=== PATIENT | female | born 1955 | race Caucasian/White ===

== ENCOUNTER 2019-08-28 23:55 | Inpatient (IN) | payer SELFPAY ==
[~2019-08-28] VITALS: Ht 154.9 cm; Wt 87.0 kg
[2019-08-29] VITALS (7 sets, daily range): BP systolic 116–139; BP diastolic 55–78
[2019-08-29] MEDS ORDERED: IV DEXTROSE 5% 250 ML BAG. IV PRN ×2 (01:00→16:30)
[2019-08-29] MEDS ORDERED: DEXTROSE 50% 25 GM / 50ML DISP.SYRIN. IV PRN ×2 (01:00→16:30)
[2019-08-29] MEDS: IV NORMAL SALINE 1000ML BAG 1,000 ML IV SCH ×3 (01:28→21:26)
[2019-08-29] MEDS ORDERED: IBUP-1027 PO (01:38)
[2019-08-29 07:38] LABS: ALBUMIN 1.6 g/dL (3.4-5.0); ALBUMIN/GLOBULIN RATIO 0.3 (1.0-1.7); CALCIUM 9.2 mg/dL (8.5-10.1); GFR 55.8; TOTAL BILIRUBIN 0.5 mg/dL (0.2-1.0); TOTAL PROTEIN 6.6 g/dL (6.4-8.2)
[2019-08-29 07:45] LABS: BASO # 0.1 x10^3/uL (0.0-0.2); BASO % 0 % (0-3); EOS # 0.2 x10^3/uL (0.0-0.7); EOS % 1 % (0-3); HEMATOCRIT 31.1 % (36.0-47.0); HEMOGLOBIN 10.1 g/dL (12.0-15.5); LYMPH # 1.7 x10^3/uL (1.0-4.8); LYMPH % 11 % (24-48); MEAN CORPUSCULAR HEMOGLOBIN 28 pg (25-35); MEAN CORPUSCULAR HGB CONC 33 g/dL (31-37); MEAN CORPUSCULAR VOLUME 85 fL (79-100); MONO # 1.9 x10^3/uL (0.0-1.1); MONO % 12 % (0-9); NEUT # 11.9 x10^3/uL (1.8-7.7); NEUT % 76 % (31-73); PLATELET COUNT 279 x10^3/uL (140-400); RED BLOOD COUNT 3.68 x10^6/uL (3.50-5.40); RED CELL DISTRIBUTION WIDTH 15.5 % (11.5-14.5); WHITE BLOOD COUNT 15.7 x10^3/uL (4.0-11.0)
[2019-08-29] MEDS ORDERED: INSULIN REGULAR VIAL 100 UNIT in IV NORMAL SALINE 100ML 100 ML IV PRN (08:00)
[2019-08-29] MEDS ORDERED: INSULIN LISPRO 300 UNITS/3 ML VIAL. SQ SCH (08:00)
[2019-08-29] MEDS ORDERED: IV NORMAL SALINE 1000ML BAG 1,000 ML IV ONE (08:00)
--- NOTE | 2019-08-29 12:20 | RAD ---
MRI Brain without contrast History: History of confusion, abnormal head CT, weakness Technique: Multiplanar, multisequential noncontrast MR imaging was performed of the brain. Comparison: None Findings: There is fairly significant motion degradation. There is no evidence of recent infarct, midline shift, or extra-axial fluid collection. There is more focal T2 and FLAIR hyperintense signal abnormality anteriorly of the basal ganglia estimated about 1.7 cm AP by 0.8 cm transverse, slightly hypointense on the T1 sequence. There is other very mild T2 and FLAIR hyperintense signal of the periventricular white matter bilaterally. There is small old left thalamic lacunar infarct. There is no convincing hemosiderin deposition of the brain parenchyma. Right vertebral artery flow-void is not well-visualized, likely small in caliber. There is mild bilateral ethmoid air cell mucosal thickening also small mucous retention cyst of the right sphenoethmoidal recess. Mastoid air cells are overall aerated. Cerebellar tonsils are normal in location. There is nonspecific heterogeneity of the marrow of the nonexpanded clivus. Impression: 1. There is no evidence of recent infarct. 2. There is nonspecific T2 and FLAIR hyperintense signal of the left basal ganglia. Findings are nonspecific, could be secondary to sequela of previous ischemia. Post contrast imaging, if patient is able to perform, is recommended. There is small old left thalamic lacunar infarct. Other mild T2 and FLAIR hyperintense signal of the periventricular white matter is nonspecific, may be due to chronic microvascular ischemic disease. Electronically signed by: Enrique Plunkett MD (08/29/2019 12:17 PM) [id number]
[2019-08-29 13:01] LABS: % BANDS 15 % (0-9); % EOS 3 % (0-5); % LYMPHS 12 % (24-48); % MONOS 8 % (0-10); % SEGS 62 % (35-66); PLT ESTIMATE ADEQUATE (ADEQUATE)
[2019-08-29 13:02] LABS: ANISOCYTOSIS PRESENT
--- NOTE | 2019-08-29 13:09 | HP ---
ADMIT DATE: 08/29/2019 HISTORY OF PRESENT ILLNESS: The patient is a 64-year-old female patient who presented to the Emergency Room of [facility] with a complaint of some dizziness and possible confusion and weakness throughout the day. According to the ER physician, the patient states that she has not been feeling well for approximately 1 week. Reportedly, her said that he brought her a burger and she kept dropping it multiple times. She asked for Coke and she also again dropped it. She has difficulty gripping with her right hand and may be some regular difficulty walking. 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 There, she was in fact found to have markedly elevated white cell count of 17,000. She has also severe hyperglycemia with actually metabolic acidosis. Her urinalysis was cloudy with positive for leukocyte esterase and too numerous to count wbc's and many bacteria and the patient was transferred with new onset type 2 diabetes with diabetic ketoacidosis, urinary tract infection. Apparently, her CT scan also showed that she has focal white matter changes in the anterior limb of the internal capsule on the left side and therefore, she was transferred to [facility] to consult the neurologist and to do an MRI. PAST MEDICAL HISTORY: Unremarkable. She does not go to the doctor. Has never been diagnosed with diabetes, hypertension or hyperlipidemia. Has never known before the diagnosis with TIA or cerebrovascular accident. PAST SURGICAL HISTORY: Significant for , appendectomy and total abdominal hysterectomy. ALLERGIES: She has no known drug allergies. MEDICATIONS: She is currently on no medication. FAMILY HISTORY: She has 3 full sisters, 2 older and 1 younger. She is not aware of any medical problem. Her father is , but does not know the age or the cause of his . Her mother at age of 79, but does not know the cause of her . SOCIAL HISTORY: She is for the second time. She has no children from her current . She has a daughter and a son from her previous marriage. She quit smoking about 5 years ago. She used to smoke up to a pack a day. She does not drink alcohol or use any recreational drugs. She worked for [employer] for 8 years and also [employer] for 5 years. PHYSICAL EXAMINATION: GENERAL: On arrival to the Emergency Room, she looked well and was clearly in no apparent respiratory distress, pale, but no jaundice or cyanosis. No lymphadenopathy, no thyromegaly. No jugular venous distention. No lower limb edema. VITAL SIGNS: Her heart rate was 124, blood pressure 148/84, temperature was 98.5, respiratory rate 20 and oxygen saturation was 97%. HEAD, EYES, EARS, NOSE AND THROAT: Showed normocephalic, atraumatic. NECK: Supple. HEART: Showed normal first and second heart sounds. No gallop, rub or murmur. CHEST: Clear to auscultation. No crepitation or rhonchi. ABDOMEN: Slightly distended, soft, nontender. NEUROLOGIC: She was alert, oriented to time, place and person. Apparently, when she presented there, her neurological examination was unremarkable. LABORATORY DATA: While at the Emergency Room of [facility], she has an EKG, which showed that she was in sinus tachycardia with a ventricular rate of 122 beats per minute with no ST segment elevation. Her chest x-ray showed possible mild atelectasis, infiltrate in the lung base on the lateral view. No other acute chest disease. CT scan of the head showed that she has focal white matter changes in the anterior limb of the internal capsule on the left side. Her lab work showed a white cell count 17,200; hemoglobin 11; hematocrit 35; MCV 87 and platelet count of 334,000. Her prothrombin time was 11.3, INR 1.1, aPTT was 28. Her serum sodium was 135, potassium 4.4, chloride 97, bicarbonate 16, anion gap of 22, BUN 23, creatinine 1.3, estimated GFR was 41 mL per minute. Her glucose was 497, calcium was 10.7. Lactic acid was 1.3. Her urinalysis showed the urine was yellow, cloudy with a pH of 5, specific gravity of 1.015. There was large amount of protein, large amount of glucose, large amount of ketones, small amount of blood, negative for nitrite, trace amount of leukocyte esterase, 1-2 rbc's, too numerous to count wbc's and few bacteria. 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 She was started on IV fluid and initially on insulin sliding scale. However, given that she has high anion gap metabolic acidosis and marked hyperglycemia, we will start her on insulin drip as well as IV fluid. We did consult the urologist and continued her on IV antibiotic in the form of ceftriaxone. We will follow her labs closely and she probably needs obviously lipid profile and carotid Dopplers and will also recommend physical and occupational therapy. JOSHUA BRINK MD DR: ZENON/jayme JOB#: [id number] / [id number]
--- NOTE | 2019-08-29 13:17 | PDOC2 ---
NEUROLOGY CONSULT Date of Admission Date of Admission DATE: 08/29/19 TIME: 13:08 Reason for Consult Reason for Consult: Abnormal head CT Referring Physician Referring Physician: Dr. Womack Source Source: Chart review, Patient History of Present Illness History of Present Illness The patient is a 64-year-old right-handed female who presented to the [facility] emergency department with several days of dizziness, confusion, weakness, perhaps worse on the right side. She was found to have a urinary tract infection. She had an abnormal head CT as reviewed below. She is feeling better today. There is no history of stroke, seizure, or head injury. Here in the hospital she has been found to be hyperglycemic and is on an insulin drip. Past Medical History Cardiovascular: No pertinent hx Musculoskeletal: Other (Left knee injury) Past Surgical History Past Surgical History: Other Family History Family History: CAD Social History Social History , retired, ex smoker, rare alcohol Current Medications Current Medications Current Medications Sodium Chloride 1,000 ml @ 100 mls/hr Q10H IV Last administered on 08/29/19at 11:00; Start 08/29/19 at 01:00 Ceftriaxone Sodium (Rocephin) 1 gm Q24H IVP ; Start 08/29/19 at 21:00 Acetaminophen (Tylenol) 650 mg PRN Q4HRS PRN PO MILD PAIN / TEMP; Start 08/29/19 at 01:00 Insulin Human Lispro (HumaLOG) 0-7 UNITS TIDWMEALS SQ ; Start 08/29/19 at 08:00; Stop 08/29/19 at 07:53; Status DC Dextrose (Dextrose 50%-Water Syringe) 12.5 gm PRN Q15MIN PRN IV SEE COMMENTS; Start 08/29/19 at 01:00 Dextrose (Iv Dextrose 5%) 250 ml PRN Q15MIN PRN IV SEE COMMENTS; Start 08/29/19 at 01:00 Insulin Human Regular 100 unit/ Sodium Chloride 101 ml @ 5.8 mls/hr CONT PRN IV per protocol; Start 08/29/19 at 08:00 Sodium Chloride 1,000 ml @ 1,000 mls/hr 1X ONCE IV Last administered on 08/29/19at 08:00; Start 08/29/19 at 08:00; Stop 08/29/19 at 08:59; Status DC Active Scripts Active Reported Ibuprofen 400 Mg Tablet 400 Mg PO PRN Q6HRS PRN Allergies Allergies: Coded Allergies: No Known Drug Allergies (Unverified , 08/29/19) verified with pt, NKDA ROS Review of System Negative for fever, chills, weight loss, shortness of breath, chest pain, in digestion, hematochezia, melena, and dysuria. Full 14-point review of systems is negative. Physical Exam Physical Examination General: Well-developed, well-nourished black female in no acute distress HEENT: Normocephalic andatraumatic. Temporal arteriespulsatile and nontender. Neck: Supple without bruit, no meningismus Musculoskeletal: Stability:see neurologic. Gait exam:see neurologic. Tone:see neurologic.Strength:see neurologic. Neurological: Mental Status:intact, orientation, memory, attention span/concentration, language, fund of knowledge normal. Cranial Nerves:Pupils equal and reactive to light, extraocular movements areintact, visual amador are full to confrontation. Facial sensation is normal. There is no facial asymmetry. Vestibulo-ocular reflex is intact. Palate elevates and tongue protrudes in midline. All other cranial related problems are negative except as mentioned before.Reflexes:1+ and symmetric with flexor plantar responses. Motor:5/5 strength with normal tone and bulk. Coordination:Finger-nose finger and brcv-gt-srny testing are normal. Rapid alternating movements and fine finger movements are intact. Gait: not tested. Sensory:Normal pinprick, vibration, light touch, proprioception. Vitals VITALS Vital Signs Date Time Temp Pulse Resp B/P (MAP) Pulse Ox O2 Delivery O2 Flow Rate FiO2 08/29/19 11:00 98.0 95 16 137/70 (92) 95 Room Air 98.0 Labs Labs [facility] Laboratory Tests Test 08/28/19 20:08 08/28/19 20:26 Urine Collection Type Unknown Urine Color Yellow Urine Clarity Cloudy Urine pH 5.0 Urine Specific Hilbert 1.015 Urine Protein 100 mg/dl Urine Glucose (UA) 500 mg/dL Urine Ketones (Stick) >=160 mg/dL Urine Blood Small Urine Nitrite Neg Urine Bilirubin Neg Urine Urobilinogen Dipstick 0.2 mg/dL Urine Leukocyte Esterase Trace Urine RBC 1-2 /HPF Urine WBC Tntc /HPF Urine Squamous Epithelial Cells Occ /LPF Urine Bacteria Few /HPF Urine Hyaline Casts Occ /HPF Urine Mucus Slight /LPF White Blood Count 17.2 x10^3/uL Red Blood Count 4.12 x10^6/uL Hemoglobin 11.4 g/dL Hematocrit 35.9 % Mean Corpuscular Volume 87 fL Mean Corpuscular Hemoglobin 28 pg Mean Corpuscular Hemoglobin Concent 32 g/dL Red Cell Distribution Width 15.8 % Platelet Count 334 x10^3/uL Neutrophils (%) (Auto) 77 % Lymphocytes (%) (Auto) 10 % Monocytes (%) (Auto) 11 % Eosinophils (%) (Auto) 1 % Basophils (%) (Auto) 0 % Neutrophils # (Auto) 13.3 x10^3uL Lymphocytes # (Auto) 1.8 x10^3/uL Monocytes # (Auto) 1.9 x10^3/uL Eosinophils # (Auto) 0.2 x10^3/uL Basophils # (Auto) 0.0 x10^3/uL Platelet Estimate Pending Prothrombin Time 11.3 SEC Prothromb Time International Ratio 1.1 Activated Partial Thromboplast Time 28 SEC Sodium Level 135 mmol/L Potassium Level 4.4 mmol/L Chloride Level 97 mmol/L Carbon Dioxide Level 16 mmol/L Anion Gap 22 Blood Urea Nitrogen 23 mg/dL Creatinine 1.3 mg/dL Estimated GFR (Cockcroft-Gault) 41.2 Glucose Level 497 mg/dL Calcium Level 10.7 mg/dL Troponin I Quantitative < 0.017 ng/mL Laboratory Tests Test 08/28/19 23:59 08/29/19 07:02 08/29/19 07:50 08/29/19 09:27 Glucose (Fingerstick) 387 mg/dL (70-99) 351 mg/dL (70-99) 349 mg/dL (70-99) White Blood Count 15.7 x10^3/uL (4.0-11.0) Red Blood Count 3.68 x10^6/uL (3.50-5.40) Hemoglobin 10.1 g/dL (12.0-15.5) Hematocrit 31.1 % (36.0-47.0) Mean Corpuscular Volume 85 fL (79-100) Mean Corpuscular Hemoglobin 28 pg (25-35) Mean Corpuscular Hemoglobin Concent 33 g/dL (31-37) Red Cell Distribution Width 15.5 % (11.5-14.5) Platelet Count 279 x10^3/uL (140-400) Neutrophils (%) (Auto) 76 % (31-73) Lymphocytes (%) (Auto) 11 % (24-48) Monocytes (%) (Auto) 12 % (0-9) Eosinophils (%) (Auto) 1 % (0-3) Basophils (%) (Auto) 0 % (0-3) Neutrophils # (Auto) 11.9 x10^3/uL (1.8-7.7) Lymphocytes # (Auto) 1.7 x10^3/uL (1.0-4.8) Monocytes # (Auto) 1.9 x10^3/uL (0.0-1.1) Eosinophils # (Auto) 0.2 x10^3/uL (0.0-0.7) Basophils # (Auto) 0.1 x10^3/uL (0.0-0.2) Segmented Neutrophils % 62 % (35-66) Band Neutrophils % 15 % (0-9) Lymphocytes % 12 % (24-48) Monocytes % 8 % (0-10) Eosinophils % 3 % (0-5) Platelet Estimate Adequate (ADEQUATE) Large Platelets Present Anisocytosis Present Sodium Level 135 mmol/L (136-145) Potassium Level 4.0 mmol/L (3.5-5.1) Chloride Level 103 mmol/L (98-107) Carbon Dioxide Level 12 mmol/L (21-32) Anion Gap 20 (6-14) Blood Urea Nitrogen 19 mg/dL (7-20) Creatinine 1.0 mg/dL (0.6-1.0) Estimated GFR (Cockcroft-Gault) 55.8 BUN/Creatinine Ratio 19 (6-20) Glucose Level 371 mg/dL (70-99) Calcium Level 9.2 mg/dL (8.5-10.1) Total Bilirubin 0.5 mg/dL (0.2-1.0) Aspartate Amino Transf (AST/SGOT) 12 U/L (15-37) Alanine Aminotransferase (ALT/SGPT) 12 U/L (14-59) Alkaline Phosphatase 101 U/L (46-116) Total Protein 6.6 g/dL (6.4-8.2) Albumin 1.6 g/dL (3.4-5.0) Albumin/Globulin Ratio 0.3 (1.0-1.7) Test 08/29/19 10:28 08/29/19 12:03 Glucose (Fingerstick) 359 mg/dL (70-99) 358 mg/dL (70-99) Laboratory Tests Test 08/28/19 23:59 08/29/19 07:02 08/29/19 07:50 08/29/19 09:27 Glucose (Fingerstick) 387 mg/dL (70-99) 351 mg/dL (70-99) 349 mg/dL (70-99) White Blood Count 15.7 x10^3/uL (4.0-11.0) Red Blood Count 3.68 x10^6/uL (3.50-5.40) Hemoglobin 10.1 g/dL (12.0-15.5) Hematocrit 31.1 % (36.0-47.0) Mean Corpuscular Volume 85 fL (79-100) Mean Corpuscular Hemoglobin 28 pg (25-35) Mean Corpuscular Hemoglobin Concent 33 g/dL (31-37) Red Cell Distribution Width 15.5 % (11.5-14.5) Platelet Count 279 x10^3/uL (140-400) Neutrophils (%) (Auto) 76 % (31-73) Lymphocytes (%) (Auto) 11 % (24-48) Monocytes (%) (Auto) 12 % (0-9) Eosinophils (%) (Auto) 1 % (0-3) Basophils (%) (Auto) 0 % (0-3) Neutrophils # (Auto) 11.9 x10^3/uL (1.8-7.7) Lymphocytes # (Auto) 1.7 x10^3/uL (1.0-4.8) Monocytes # (Auto) 1.9 x10^3/uL (0.0-1.1) Eosinophils # (Auto) 0.2 x10^3/uL (0.0-0.7) Basophils # (Auto) 0.1 x10^3/uL (0.0-0.2) Segmented Neutrophils % 62 % (35-66) Band Neutrophils % 15 % (0-9) Lymphocytes % 12 % (24-48) Monocytes % 8 % (0-10) Eosinophils % 3 % (0-5) Platelet Estimate Adequate (ADEQUATE) Large Platelets Present Anisocytosis Present Sodium Level 135 mmol/L (136-145) Potassium Level 4.0 mmol/L (3.5-5.1) Chloride Level 103 mmol/L (98-107) Carbon Dioxide Level 12 mmol/L (21-32) Anion Gap 20 (6-14) Blood Urea Nitrogen 19 mg/dL (7-20) Creatinine 1.0 mg/dL (0.6-1.0) Estimated GFR (Cockcroft-Gault) 55.8 BUN/Creatinine Ratio 19 (6-20) Glucose Level 371 mg/dL (70-99) Calcium Level 9.2 mg/dL (8.5-10.1) Total Bilirubin 0.5 mg/dL (0.2-1.0) Aspartate Amino Transf (AST/SGOT) 12 U/L (15-37) Alanine Aminotransferase (ALT/SGPT) 12 U/L (14-59) Alkaline Phosphatase 101 U/L (46-116) Total Protein 6.6 g/dL (6.4-8.2) Albumin 1.6 g/dL (3.4-5.0) Albumin/Globulin Ratio 0.3 (1.0-1.7) Test 08/29/19 10:28 08/29/19 12:03 Glucose (Fingerstick) 359 mg/dL (70-99) 358 mg/dL (70-99) Images Images CT brain without contrast, [facility], 08/28/19. CT scan of brain was done without contrast. Sinuses are clear. There is no skull fracture. There is no mass or shift of the midline. There is no intracranial hemorrhage or subdural hematoma. Ventricles are normal in size. There is decreased at attenuation in the anterior limb of the internal capsule on the left which could be microvascular changes or lacunar infarct or other etiologies for white matter changes such as MS. MRI could be of benefit. IMPRESSION: 1. No intracranial hemorrhage. 2. Focal white matter changes in the anterior limb of the internal capsule on the left. MRI Brain without contrast History: History of confusion, abnormal head CT, weakness Technique: Multiplanar, multisequential noncontrast MR imaging was performed of the brain. Comparison: None Findings: There is fairly significant motion degradation. There is no evidence of recent infarct, midline shift, or extra-axial fluid collection. There is more focal T2 and FLAIR hyperintense signal abnormality anteriorly of the basal ganglia estimated about 1.7 cm AP by 0.8 cm transverse, slightly hypointense on the T1 sequence. There is other very mild T2 and FLAIR hyperintense signal of the periventricular white matter bilaterally. There is small old left thalamic lacunar infarct. There is no convincing hemosiderin deposition of the brain parenchyma. Right vertebral artery flow-void is not well-visualized, likely small in caliber. There is mild bilateral ethmoid air cell mucosal thickening also small mucous retention cyst of the right sphenoethmoidal recess. Mastoid air cells are overall aerated. Cerebellar tonsils are normal in location. There is nonspecific heterogeneity of the marrow of the nonexpanded clivus. Impression: 1. There is no evidence of recent infarct. 2. There is nonspecific T2 and FLAIR hyperintense signal of the left basal ganglia. Findings are nonspecific, could be secondary to sequela of previous ischemia. Post contrast imaging, if patient is able to perform, is recommended. There is small old left thalamic lacunar infarct. Other mild T2 and FLAIR hyperintense signal of the periventricular white matter is nonspecific, may be due to chronic microvascular ischemic disease. Assessment/Plan Assessment/Plan Impression: Old silent left basal ganglia infarct, no new stroke Metabolic encephalopathy due to multiple medical issues including urinary tract infection, leucocytosis, hyperglycemia. Exam is intact now. Recommendations: No need for additional stroke workup, although I see that Dr. Womack has ordered carotid Doppler studies. Aspirin Check lipids Treatment of urinary tract infection and hyperglycemia. Thank you for letting me help with patient care. RAYMOND PEARSON MD Aug 29, 2019 13:17
--- NOTE | 2019-08-29 14:11 | RAD ---
Carotid doppler ultrasound History: Right-sided weakness Multiple grayscale, color, and duplex spectral analysis waveform sonographic images were acquired of the carotid, subclavian, and vertebral arteries. Comparison: None Findings: RIGHT: PSV cm/sec EDV cm/sec Common carotid artery 119 16 Maximal internal carotid artery 57 10 External carotid artery 126 Vertebral artery 58 ICA/CCA ratio 0.47 LEFT: PSV cm/sec EDV cm/sec Common carotid artery 81 16 Maximum internal carotid artery 104 26 External carotid artery 95 Vertebral artery 58 ICA/CCA ratio 1.28 Velocities used to determine stenosis are known to correlate with NASCET angiographic criteria. There is antegrade flow in the bilateral vertebral arteries. There is scattered plaque of the bilateral common carotid arteries as well as the internal and external carotid arteries bilaterally. Impression: 1. There is no evidence of a hemodynamically significant stenosis. There is scattered diffuse plaque bilaterally. 2. There is likely stenosis of the right external carotid artery proximally. Electronically signed by: Enrique Plunkett MD (08/29/2019 2:08 PM) [id number]
[2019-08-29] MEDS: INSULIN LISPRO 300 UNITS/3 ML VIAL. SQ SCH (16:56)
--- NOTE | 2019-08-29 19:31 | NUR ---
Pt fall this shift. Staff reported they heard yelling and cursing coming from the room. Pt was on the floor on arrival. IV was dislodged, active bleeding. Bleeding controlled immediately. Assessment, no injuries noted. Pt was confused at the time, slurring words, unable to recall what happened prior to fall. BS was 230s, lowest its been this visit. All other VS within normal range. Nursing super, Dr. Womack, family notified. Orders received to dc insulin drip start low SS. Pt BS rechecked after dinner, 278. States she feels better when her BS is high. Pt education provided, reinforcement required. Fall precautions continue to be in place. Cont. to monitor.
[2019-08-29] MEDS ORDERED: INSULIN GLARGINE SYRINGE. SQ SCH (21:00)
[2019-08-29] MEDS: cefTRIAXone IV Push 1 GM VIAL. IVP SCH (21:19)
[2019-08-29] MEDS: LACTOBACILLUS RHAMNOSUS GG 1 CAPSULE. PO SCH (21:19)
--- NOTE | 2019-08-29 22:05 | PN ---
DATE: 08/29/2019 SUBJECTIVE: The patient was transferred yesterday from [facility] Emergency Room with urinary tract infection and marked leukocytosis. She was also found to have a new-onset type 2 diabetes with diabetic ketoacidosis and high anion metabolic acidosis, acute kidney injury and also right-sided weakness. CT scan showed that she has focal white matter change in the anterior limb of the internal capsule on the left side, which is in keeping with the finding of her neurological deficits on the right side and therefore, she was transferred to [facility]. We continued her on IV fluid, continued IV antibiotic in the form of ceftriaxone, started her on insulin drip and IV fluid, and consulted the neurologist. She apparently has had an MRI done, the results of which are still pending. PHYSICAL EXAMINATION: GENERAL: When I saw her this afternoon, she was resting slightly propped up in bed, in no apparent respiratory distress. No pallor, jaundice, cyanosis, or thyromegaly. No jugular venous distention or limb edema. VITAL SIGNS: Her heart rate was 95, blood pressure 137/70, temperature was 98, respiratory rate was 16, and oxygen saturation was 95% on room air. HEAD, EYES, EARS, NOSE, AND THROAT: Normocephalic, atraumatic. NECK: Supple. HEART: Showed normal first and second heart sounds. No gallop or murmur. CHEST: Clear to auscultation. No crepitation or rhonchi. ABDOMEN: Distended, soft, nontender. NEUROLOGIC: She is awake, alert, responding appropriately. All cranial nerves intact. She moves extremities without difficulty. I have not seen her walking. Her intake and output are incompletely recorded. LABORATORY DATA: Her lab work this morning showed a serum sodium 135, potassium 4, chloride 103, bicarbonate 12, anion gap of 20, BUN 19, creatinine 1, estimated GFR was 55 mL per minute. Her glucose was 371, calcium was 9.2. Total bilirubin, AST, ALT, alkaline phosphatase were normal. Total protein was 6.6, albumin was 1.6. Her white cell count slightly down at 15,700, hemoglobin 10, hematocrit 31, MCV 85, and platelet count 276,000. ASSESSMENT AND PLAN: In summary, this is a 64-year-old female patient who was admitted with right-sided weakness with finding of nonspecific T2 on FLAIR, hyperintense signal in the left basal ganglia. Findings are nonspecific and could be secondary to sequelae of previous ischemia. She has urinary tract infection, for which she continued to be on IV ceftriaxone. She has new-onset type 2 diabetes with diabetic ketoacidosis, for which she was started on IV fluid and insulin drip. We will obviously check her fasting lipid profile and bilateral carotid Doppler ultrasound and await the evaluation by the neurologist. JOSHUA BRINK MD DR: ZENON/jayme JOB#: [id number] / [id number]
[2019-08-30 03:00] VITALS: BP 143/76
[2019-08-30 05:38] LABS: HEMATOCRIT 30.1 % (36.0-47.0); HEMOGLOBIN 9.8 g/dL (12.0-15.5); RED BLOOD COUNT 3.55 x10^6/uL (3.50-5.40); RED CELL DISTRIBUTION WIDTH 16.2 % (11.5-14.5); WHITE BLOOD COUNT 12.6 x10^3/uL (4.0-11.0)
[2019-08-30 06:08] LABS: ALBUMIN 1.4 g/dL (3.4-5.0); ALBUMIN/GLOBULIN RATIO 0.3 (1.0-1.7); GFR 55.8; POTASSIUM 3.6 mmol/L (3.5-5.1); TOTAL BILIRUBIN 0.4 mg/dL (0.2-1.0)
[2019-08-30 06:10] LABS: CHOLESTEROL/HDL RATIO 11.9
[2019-08-30 07:00] VITALS: BP 134/69
[2019-08-30] MEDS: IV NORMAL SALINE 1000ML BAG 1,000 ML IV SCH ×2 (07:56→18:23)
[2019-08-30] MEDS: INSULIN LISPRO 300 UNITS/3 ML VIAL. SQ SCH ×2 (08:00→18:22)
[2019-08-30] MEDS: LACTOBACILLUS RHAMNOSUS GG 1 CAPSULE. PO SCH ×2 (09:05→22:14)
--- NOTE | 2019-08-30 09:20 | NUR ---
SW following. Discussed with RN, pt is from home with . Per RN, Dr. Rey states there is nothing new showing in the exam/ test/ scans. RN stated positive blood cultures. Pt is self pay, plan will be to discharge home with self care and when ready. SW will continue to follow.
[2019-08-30 11:00] VITALS: BP 132/78
[2019-08-30] MEDS ORDERED: DEXTROSE 50% 25 GM / 50ML DISP.SYRIN. IV PRN (11:00)
[2019-08-30] MEDS ORDERED: IV DEXTROSE 5% 250 ML BAG. IV PRN (11:00)
--- NOTE | 2019-08-30 11:06 | PDOC ---
PROGRESS NOTES Assessment Old silent left basal ganglia infarct, no new stroke Metabolic encephalopathy due to multiple medical issues including urinary tract infection, leucocytosis, hyperglycemia. Exam is intact now. Lipids, normal cholesterol, elevated triglycerides Plan No need for additional stroke workup. Aspirin Lipid treatment per PCP, internal medicine Regulate diabetes Treatment of urinary tract infection and hyperglycemia. Subjective no complaints, still feels a little weak Objective Vital Signs Date Time Temp Pulse Resp B/P (MAP) Pulse Ox O2 Delivery O2 Flow Rate FiO2 08/30/19 07:00 98.4 92 16 134/69 (90) 95 Room Air 98.4 Intake and Output 08/30/19 07:00 Intake Total 120 ml Balance 120 ml Intake Oral 120 ml # Voids 3 PHYSICAL EXAM Alert. Oriented to time, place and person. PERRL. EOMI. CN: no focal findings. Muscle tone: normal. Muscle strength: 5/5 DTR: 1+ Plantar reflex: flexor Gait: not examined in bed. Sensory exam: no abnormal findings. No cerebellar signs elicited. Review of Relevant I have reviewed the following items damaso (where applicable) has been applied. Labs Laboratory Tests Test 08/28/19 23:59 08/29/19 07:02 08/29/19 07:50 08/29/19 09:27 Glucose (Fingerstick) 387 mg/dL (70-99) 351 mg/dL (70-99) 349 mg/dL (70-99) White Blood Count 15.7 x10^3/uL (4.0-11.0) Red Blood Count 3.68 x10^6/uL (3.50-5.40) Hemoglobin 10.1 g/dL (12.0-15.5) Hematocrit 31.1 % (36.0-47.0) Mean Corpuscular Volume 85 fL (79-100) Mean Corpuscular Hemoglobin 28 pg (25-35) Mean Corpuscular Hemoglobin Concent 33 g/dL (31-37) Red Cell Distribution Width 15.5 % (11.5-14.5) Platelet Count 279 x10^3/uL (140-400) Neutrophils (%) (Auto) 76 % (31-73) Lymphocytes (%) (Auto) 11 % (24-48) Monocytes (%) (Auto) 12 % (0-9) Eosinophils (%) (Auto) 1 % (0-3) Basophils (%) (Auto) 0 % (0-3) Neutrophils # (Auto) 11.9 x10^3/uL (1.8-7.7) Lymphocytes # (Auto) 1.7 x10^3/uL (1.0-4.8) Monocytes # (Auto) 1.9 x10^3/uL (0.0-1.1) Eosinophils # (Auto) 0.2 x10^3/uL (0.0-0.7) Basophils # (Auto) 0.1 x10^3/uL (0.0-0.2) Segmented Neutrophils % 62 % (35-66) Band Neutrophils % 15 % (0-9) Lymphocytes % 12 % (24-48) Monocytes % 8 % (0-10) Eosinophils % 3 % (0-5) Platelet Estimate Adequate (ADEQUATE) Large Platelets Present Anisocytosis Present Sodium Level 135 mmol/L (136-145) Potassium Level 4.0 mmol/L (3.5-5.1) Chloride Level 103 mmol/L (98-107) Carbon Dioxide Level 12 mmol/L (21-32) Anion Gap 20 (6-14) Blood Urea Nitrogen 19 mg/dL (7-20) Creatinine 1.0 mg/dL (0.6-1.0) Estimated GFR (Cockcroft-Gault) 55.8 BUN/Creatinine Ratio 19 (6-20) Glucose Level 371 mg/dL (70-99) Calcium Level 9.2 mg/dL (8.5-10.1) Total Bilirubin 0.5 mg/dL (0.2-1.0) Aspartate Amino Transf (AST/SGOT) 12 U/L (15-37) Alanine Aminotransferase (ALT/SGPT) 12 U/L (14-59) Alkaline Phosphatase 101 U/L (46-116) Total Protein 6.6 g/dL (6.4-8.2) Albumin 1.6 g/dL (3.4-5.0) Albumin/Globulin Ratio 0.3 (1.0-1.7) Test 08/29/19 10:28 08/29/19 12:03 08/29/19 13:18 08/29/19 14:21 Glucose (Fingerstick) 359 mg/dL (70-99) 358 mg/dL (70-99) 342 mg/dL (70-99) 312 mg/dL (70-99) Test 08/29/19 15:26 08/29/19 16:07 08/29/19 16:52 08/29/19 18:03 Glucose (Fingerstick) 273 mg/dL (70-99) 223 mg/dL (70-99) 248 mg/dL (70-99) 277 mg/dL (70-99) Test 08/29/19 20:25 08/30/19 04:00 08/30/19 07:55 Glucose (Fingerstick) 293 mg/dL (70-99) 315 mg/dL (70-99) White Blood Count 12.6 x10^3/uL (4.0-11.0) Red Blood Count 3.55 x10^6/uL (3.50-5.40) Hemoglobin 9.8 g/dL (12.0-15.5) Hematocrit 30.1 % (36.0-47.0) Mean Corpuscular Volume 85 fL (79-100) Mean Corpuscular Hemoglobin 28 pg (25-35) Mean Corpuscular Hemoglobin Concent 33 g/dL (31-37) Red Cell Distribution Width 16.2 % (11.5-14.5) Platelet Count 281 x10^3/uL (140-400) Sodium Level 138 mmol/L (136-145) Potassium Level 3.6 mmol/L (3.5-5.1) Chloride Level 105 mmol/L (98-107) Carbon Dioxide Level 15 mmol/L (21-32) Anion Gap 18 (6-14) Blood Urea Nitrogen 17 mg/dL (7-20) Creatinine 1.0 mg/dL (0.6-1.0) Estimated GFR (Cockcroft-Gault) 55.8 BUN/Creatinine Ratio 17 (6-20) Glucose Level 321 mg/dL (70-99) Calcium Level 9.0 mg/dL (8.5-10.1) Total Bilirubin 0.4 mg/dL (0.2-1.0) Aspartate Amino Transf (AST/SGOT) 14 U/L (15-37) Alanine Aminotransferase (ALT/SGPT) 9 U/L (14-59) Alkaline Phosphatase 108 U/L (46-116) Total Protein 7.0 g/dL (6.4-8.2) Albumin 1.4 g/dL (3.4-5.0) Albumin/Globulin Ratio 0.3 (1.0-1.7) Triglycerides Level 151 mg/dL (0-150) Cholesterol Level 107 mg/dL (0-200) LDL Cholesterol, Calculated 68 mg/dL (0-100) VLDL Cholesterol, Calculated 30 mg/dL (0-40) Non-HDL Cholesterol Calculated 98 mg/dL (0-129) HDL Cholesterol 9 mg/dL (40-60) Cholesterol/HDL Ratio 11.9 Laboratory Tests Test 08/29/19 12:03 08/29/19 13:18 08/29/19 14:21 08/29/19 15:26 Glucose (Fingerstick) 358 mg/dL (70-99) 342 mg/dL (70-99) 312 mg/dL (70-99) 273 mg/dL (70-99) Test 08/29/19 16:07 08/29/19 16:52 08/29/19 18:03 08/29/19 20:25 Glucose (Fingerstick) 223 mg/dL (70-99) 248 mg/dL (70-99) 277 mg/dL (70-99) 293 mg/dL (70-99) Test 08/30/19 04:00 08/30/19 07:55 White Blood Count 12.6 x10^3/uL (4.0-11.0) Red Blood Count 3.55 x10^6/uL (3.50-5.40) Hemoglobin 9.8 g/dL (12.0-15.5) Hematocrit 30.1 % (36.0-47.0) Mean Corpuscular Volume 85 fL (79-100) Mean Corpuscular Hemoglobin 28 pg (25-35) Mean Corpuscular Hemoglobin Concent 33 g/dL (31-37) Red Cell Distribution Width 16.2 % (11.5-14.5) Platelet Count 281 x10^3/uL (140-400) Sodium Level 138 mmol/L (136-145) Potassium Level 3.6 mmol/L (3.5-5.1) Chloride Level 105 mmol/L (98-107) Carbon Dioxide Level 15 mmol/L (21-32) Anion Gap 18 (6-14) Blood Urea Nitrogen 17 mg/dL (7-20) Creatinine 1.0 mg/dL (0.6-1.0) Estimated GFR (Cockcroft-Gault) 55.8 BUN/Creatinine Ratio 17 (6-20) Glucose Level 321 mg/dL (70-99) Calcium Level 9.0 mg/dL (8.5-10.1) Total Bilirubin 0.4 mg/dL (0.2-1.0) Aspartate Amino Transf (AST/SGOT) 14 U/L (15-37) Alanine Aminotransferase (ALT/SGPT) 9 U/L (14-59) Alkaline Phosphatase 108 U/L (46-116) Total Protein 7.0 g/dL (6.4-8.2) Albumin 1.4 g/dL (3.4-5.0) Albumin/Globulin Ratio 0.3 (1.0-1.7) Triglycerides Level 151 mg/dL (0-150) Cholesterol Level 107 mg/dL (0-200) LDL Cholesterol, Calculated 68 mg/dL (0-100) VLDL Cholesterol, Calculated 30 mg/dL (0-40) Non-HDL Cholesterol Calculated 98 mg/dL (0-129) HDL Cholesterol 9 mg/dL (40-60) Cholesterol/HDL Ratio 11.9 Glucose (Fingerstick) 315 mg/dL (70-99) Medications Current Medications Sodium Chloride 1,000 ml @ 100 mls/hr Q10H IV Last administered on 08/30/19at 07:56; Start 08/29/19 at 01:00 Ceftriaxone Sodium (Rocephin) 1 gm Q24H IVP Last administered on 08/29/19at 21:19; Start 08/29/19 at 21:00 Acetaminophen (Tylenol) 650 mg PRN Q4HRS PRN PO MILD PAIN / TEMP; Start 08/29/19 at 01:00 Insulin Human Lispro (HumaLOG) 0-7 UNITS TIDWMEALS SQ ; Start 08/29/19 at 08:00; Stop 08/29/19 at 07:53; Status DC Dextrose (Dextrose 50%-Water Syringe) 12.5 gm PRN Q15MIN PRN IV SEE COMMENTS; Start 08/29/19 at 01:00; Stop 08/29/19 at 18:41; Status DC Dextrose (Iv Dextrose 5%) 250 ml PRN Q15MIN PRN IV SEE COMMENTS; Start 08/29/19 at 01:00; Stop 08/29/19 at 18:41; Status DC Insulin Human Regular 100 unit/ Sodium Chloride 101 ml @ 5.8 mls/hr CONT PRN I V per protocol; Start 08/29/19 at 08:00; Stop 08/29/19 at 16:34; Status DC Sodium Chloride 1,000 ml @ 1,000 mls/hr 1X ONCE IV Last administered on 08/29/19at 08:00; Start 08/29/19 at 08:00; Stop 08/29/19 at 08:59; Status DC Lactobacillus Rhamnosus (Culturelle) 1 cap BID PO Last administered on 08/30/19at 09:05; Start 08/29/19 at 21:00 Insulin Human Lispro (HumaLOG) 0-5 UNITS TIDWMEALS SQ Last administered on 08/30/19at 08:00; Start 08/29/19 at 17:00; Stop 08/30/19 at 10:46; Status DC Dextrose (Dextrose 50%-Water Syringe) 12.5 gm PRN Q15MIN PRN IV SEE COMMENTS; Start 08/29/19 at 16:30; Stop 08/30/19 at 10:55; Status DC Dextrose (Iv Dextrose 5%) 250 ml PRN Q15MIN PRN IV SEE COMMENTS; Start 08/29/19 at 16:30; Stop 08/30/19 at 10:55; Status DC Insulin Glargine (Lantus Syringe) 10 unit QHS SQ Last administered on 08/29/19at 22:28; Start 08/29/19 at 21:00; Stop 08/30/19 at 10:46; Status DC Insulin Glargine (Lantus Syringe) 20 unit QHS SQ ; Start 08/30/19 at 21:00 Insulin Human Lispro (HumaLOG) 0-7 UNITS TIDWMEALS SQ ; Start 08/30/19 at 12:00 Dextrose (Dextrose 50%-Water Syringe) 12.5 gm PRN Q15MIN PRN IV SEE COMMENTS; Start 08/30/19 at 11:00 Dextrose (Iv Dextrose 5%) 250 ml PRN Q15MIN PRN IV SEE COMMENTS; Start 08/30/19 at 11:00 Active Scripts Active Reported Ibuprofen 400 Mg Tablet 400 Mg PO PRN Q6HRS PRN Vitals/I & O Vital Sign - Last 24 Hours 08/29/19 08/29/19 08/29/19 08/30/19 15:00 19:00 23:00 03:00 Temp 97.9 98.5 98.7 98.7 97.9 98.5 98.7 98.7 Pulse 65 101 98 99 Resp 16 18 18 18 B/P (MAP) 131/55 (80) 129/65 (86) 138/67 (90) 143/76 (98) Pulse Ox 95 95 96 94 O2 Delivery Room Air Room Air Room Air Room Air 08/30/19 07:00 Temp 98.4 98.4 Pulse 92 Resp 16 B/P (MAP) 134/69 (90) Pulse Ox 95 O2 Delivery Room Air Intake and Output 08/29/19 08/29/19 08/30/19 15:00 23:00 07:00 Intake Total 0 ml 120 ml Balance 0 ml 120 ml Images Carotids: There is antegrade flow in the bilateral vertebral arteries. There is scattered plaque of the bilateral common carotid arteries as well as the internal and external carotid arteries bilaterally. Impression: 1. There is no evidence of a hemodynamically significant stenosis. There is scattered diffuse plaque bilaterally. 2. There is likely stenosis of the right external carotid artery proximally. RAYMOND PEARSON MD Aug 30, 2019 11:06
[2019-08-30] MEDS ORDERED: INSULIN LISPRO 300 UNITS/3 ML VIAL. SQ SCH (12:00)
--- NOTE | 2019-08-30 12:23 | PN ---
DATE: 08/30/2019 SUBJECTIVE: The patient is resting, slightly propped up in bed, in no apparent respiratory distress. She is sleepy, but arousable. On questioning her, denied any complaint. The nursing staff did not voice any concern and stated that she has an uneventful night. PHYSICAL EXAMINATION: GENERAL: When I examined her, she looked somewhat pale, but no jaundice, cyanosis or thyromegaly. VITAL SIGNS: Her heart rate was 92, blood pressure was 134/69, temperature 98.4, respiratory rate was 16, and oxygen saturation was 95%. HEAD, EYES, EARS, NOSE AND THROAT: Normocephalic, atraumatic. NECK: Supple. HEART: Showed normal first and second heart sounds with no gallop or murmur. CHEST: Clear to auscultation. No crepitation or rhonchi. ABDOMEN: Distended, soft, nontender. NEUROLOGIC: She was awake, alert, responding appropriately. All cranial nerves intact. She moves extremities without difficulty. LABORATORY DATA: Her lab work this morning showed her white cell count is down to 12,600, hemoglobin 9.8, hematocrit 30, MCV 85 and platelet count 281,000. Her chemistry showed that her blood sugar continues to be suboptimally controlled. Her serum sodium was 138, potassium 3.6, chloride 105, bicarbonate 15, anion gap of 18, BUN 17, creatinine 1, estimated GFR was 55 mL per minute. Her glucose was 321, calcium was 9. Total protein was 7, albumin was 1.4. Her total bilirubin, AST, ALT, alkaline phosphatase were normal. Serum triglycerides 151, total cholesterol 107, LDL was 68, VLDL was 30, HDL was 9 and the ratio was 11.9. Her blood cultures in [facility] showed growth of gram-negative rods, identification and sensitivity is still pending at the time of this dictation. The patient has had bilateral carotid Doppler ultrasound, which showed that there is no evidence of hemodynamically significant stenosis. There is scattered diffuse plaque bilaterally. There is likely stenosis of right external carotid artery proximally. The patient was seen by Dr. Benítez and apparently the patient has what seems to be old silent left basal ganglia infarct. No new stroke. She has metabolic encephalopathy with multiple medical issues including urinary tract infection, leukocytosis and hyperglycemia. PLAN: To continue with IV antibiotic. Continue with IV fluid. Blood sugar continued to be suboptimally controlled, so I increased Lantus 20 units and insulin sliding scale to moderate regimen and once we have the culture and sensitivity, we will switch her antibiotic. Meanwhile, we will start the process of physical and occupational therapy. JOSHUA BRINK MD DR: ZENON/jayme JOB#: [id number] / [id number]
[2019-08-30 15:00] VITALS: BP 136/75
[2019-08-30 19:00] VITALS: BP 128/73
[2019-08-30] MEDS ORDERED: INSULIN GLARGINE SYRINGE. SQ SCH (21:00)
[2019-08-30] MEDS: cefTRIAXone IV Push 1 GM VIAL. IVP SCH (22:14)
[2019-08-30 23:00] VITALS: BP 136/87
[2019-08-31 03:00] VITALS: BP 159/85
[2019-08-31] MEDS: IV NORMAL SALINE 1000ML BAG 1,000 ML IV SCH ×2 (04:20→17:10)
[2019-08-31 07:00] VITALS: BP 117/71
[2019-08-31 07:42] LABS: HEMATOCRIT 27.6 % (36.0-47.0); HEMOGLOBIN 9.4 g/dL (12.0-15.5); RED BLOOD COUNT 3.31 x10^6/uL (3.50-5.40); RED CELL DISTRIBUTION WIDTH 15.8 % (11.5-14.5); WHITE BLOOD COUNT 9.4 x10^3/uL (4.0-11.0)
[2019-08-31 07:51] LABS: CALCIUM 8.5 mg/dL (8.5-10.1); CREATININE 0.9 mg/dL (0.6-1.0)
[2019-08-31] MEDS: INSULIN LISPRO 300 UNITS/3 ML VIAL. SQ SCH ×4 (07:58→17:18)
[2019-08-31] MEDS ORDERED: POTASSIUM CHLORIDE 20 MEQ TABLET.ER. PO ONE (09:15)
--- NOTE | 2019-08-31 10:01 | PDOC ---
PROGRESS NOTES Assessment Old silent left basal ganglia infarct, no new stroke Metabolic encephalopathy due to multiple medical issues including urinary tract infection, leucocytosis, hyperglycemia. Exam is intact now. Lipids, normal cholesterol, elevated triglycerides Plan Transfer to correction No need for additional stroke workup. Aspirin Lipid treatment per PCP, internal medicine Regulate diabetes Treatment of urinary tract infection and hyperglycemia. Subjective No complaints Objective Vital Signs Date Time Temp Pulse Resp B/P (MAP) Pulse Ox O2 Delivery O2 Flow Rate FiO2 08/31/19 07:00 98.0 86 16 117/71 (86) 96 Room Air 98.0 Intake and Output 08/31/19 07:00 Intake Total 0 ml Balance 0 ml Intake Oral 0 ml # Voids 7 # Bowel Movements 1 PHYSICAL EXAM Alert. Oriented to time, place and person. PERRL. EOMI. CN: no focal findings. Muscle tone: normal. Muscle strength: 5/5 DTR: 1+ Plantar reflex: flexor Gait: not examined in bed. Sensory exam: no abnormal findings. No cerebellar signs elicited. Review of Relevant I have reviewed the following items damaso (where applicable) has been applied. Labs Laboratory Tests Test 08/29/19 10:28 08/29/19 12:03 08/29/19 13:18 08/29/19 14:21 Glucose (Fingerstick) 359 mg/dL (70-99) 358 mg/dL (70-99) 342 mg/dL (70-99) 312 mg/dL (70-99) Test 08/29/19 15:26 08/29/19 16:07 08/29/19 16:52 08/29/19 18:03 Glucose (Fingerstick) 273 mg/dL (70-99) 223 mg/dL (70-99) 248 mg/dL (70-99) 277 mg/dL (70-99) Test 08/29/19 20:25 08/30/19 04:00 08/30/19 07:55 08/30/19 11:38 Glucose (Fingerstick) 293 mg/dL (70-99) 315 mg/dL (70-99) 342 mg/dL (70-99) White Blood Count 12.6 x10^3/uL (4.0-11.0) Red Blood Count 3.55 x10^6/uL (3.50-5.40) Hemoglobin 9.8 g/dL (12.0-15.5) Hematocrit 30.1 % (36.0-47.0) Mean Corpuscular Volume 85 fL (79-100) Mean Corpuscular Hemoglobin 28 pg (25-35) Mean Corpuscular Hemoglobin Concent 33 g/dL (31-37) Red Cell Distribution Width 16.2 % (11.5-14.5) Platelet Count 281 x10^3/uL (140-400) Sodium Level 138 mmol/L (136-145) Potassium Level 3.6 mmol/L (3.5-5.1) Chloride Level 105 mmol/L (98-107) Carbon Dioxide Level 15 mmol/L (21-32) Anion Gap 18 (6-14) Blood Urea Nitrogen 17 mg/dL (7-20) Creatinine 1.0 mg/dL (0.6-1.0) Estimated GFR (Cockcroft-Gault) 55.8 BUN/Creatinine Ratio 17 (6-20) Glucose Level 321 mg/dL (70-99) Calcium Level 9.0 mg/dL (8.5-10.1) Total Bilirubin 0.4 mg/dL (0.2-1.0) Aspartate Amino Transf (AST/SGOT) 14 U/L (15-37) Alanine Aminotransferase (ALT/SGPT) 9 U/L (14-59) Alkaline Phosphatase 108 U/L (46-116) Total Protein 7.0 g/dL (6.4-8.2) Albumin 1.4 g/dL (3.4-5.0) Albumin/Globulin Ratio 0.3 (1.0-1.7) Triglycerides Level 151 mg/dL (0-150) Cholesterol Level 107 mg/dL (0-200) LDL Cholesterol, Calculated 68 mg/dL (0-100) VLDL Cholesterol, Calculated 30 mg/dL (0-40) Non-HDL Cholesterol Calculated 98 mg/dL (0-129) HDL Cholesterol 9 mg/dL (40-60) Cholesterol/HDL Ratio 11.9 Test 08/30/19 17:03 08/30/19 21:00 08/31/19 06:45 08/31/19 07:44 Glucose (Fingerstick) 392 mg/dL (70-99) 321 mg/dL (70-99) 308 mg/dL (70-99) White Blood Count 9.4 x10^3/uL (4.0-11.0) Red Blood Count 3.31 x10^6/uL (3.50-5.40) Hemoglobin 9.4 g/dL (12.0-15.5) Hematocrit 27.6 % (36.0-47.0) Mean Corpuscular Volume 83 fL (79-100) Mean Corpuscular Hemoglobin 28 pg (25-35) Mean Corpuscular Hemoglobin Concent 34 g/dL (31-37) Red Cell Distribution Width 15.8 % (11.5-14.5) Platelet Count 246 x10^3/uL (140-400) Sodium Level 136 mmol/L (136-145) Potassium Level 3.0 mmol/L (3.5-5.1) Chloride Level 105 mmol/L (98-107) Carbon Dioxide Level 19 mmol/L (21-32) Anion Gap 12 (6-14) Blood Urea Nitrogen 15 mg/dL (7-20) Creatinine 0.9 mg/dL (0.6-1.0) Estimated GFR (Cockcroft-Gault) 63.0 Glucose Level 315 mg/dL (70-99) Calcium Level 8.5 mg/dL (8.5-10.1) Laboratory Tests Test 08/30/19 11:38 08/30/19 17:03 08/30/19 21:00 08/31/19 06:45 Glucose (Fingerstick) 342 mg/dL (70-99) 392 mg/dL (70-99) 321 mg/dL (70-99) White Blood Count 9.4 x10^3/uL (4.0-11.0) Red Blood Count 3.31 x10^6/uL (3.50-5.40) Hemoglobin 9.4 g/dL (12.0-15.5) Hematocrit 27.6 % (36.0-47.0) Mean Corpuscular Volume 83 fL (79-100) Mean Corpuscular Hemoglobin 28 pg (25-35) Mean Corpuscular Hemoglobin Concent 34 g/dL (31-37) Red Cell Distribution Width 15.8 % (11.5-14.5) Platelet Count 246 x10^3/uL (140-400) Sodium Level 136 mmol/L (136-145) Potassium Level 3.0 mmol/L (3.5-5.1) Chloride Level 105 mmol/L (98-107) Carbon Dioxide Level 19 mmol/L (21-32) Anion Gap 12 (6-14) Blood Urea Nitrogen 15 mg/dL (7-20) Creatinine 0.9 mg/dL (0.6-1.0) Estimated GFR (Cockcroft-Gault) 63.0 Glucose Level 315 mg/dL (70-99) Calcium Level 8.5 mg/dL (8.5-10.1) Test 08/31/19 07:44 Glucose (Fingerstick) 308 mg/dL (70-99) Medications Current Medications Sodium Chloride 1,000 ml @ 100 mls/hr Q10H IV Last administered on 08/31/19at 04:20; Start 08/29/19 at 01:00 Ceftriaxone Sodium (Rocephin) 1 gm Q24H IVP Last administered on 08/30/19at 22:14; Start 08/29/19 at 21:00 Acetaminophen (Tylenol) 650 mg PRN Q4HRS PRN PO MILD PAIN / TEMP; Start 08/29/19 at 01:00 Insulin Human Lispro (HumaLOG) 0-7 UNITS TIDWMEALS SQ ; Start 08/29/19 at 08:00; Stop 08/29/19 at 07:53; Status DC Dextrose (Dextrose 50%-Water Syringe) 12.5 gm PRN Q15MIN PRN IV SEE COMMENTS; Start 08/29/19 at 01:00; Stop 08/29/19 at 18:41; Status DC Dextrose (Iv Dextrose 5%) 250 ml PRN Q15MIN PRN IV SEE COMMENTS; Start 08/29/19 at 01:00; Stop 08/29/19 at 18:41; Status DC Insulin Human Regular 100 unit/ Sodium Chloride 101 ml @ 5.8 mls/hr CONT PRN IV per protocol; Start 08/29/19 at 08:00; Stop 08/29/19 at 16:34; Status DC Sodium Chloride 1,000 ml @ 1,000 mls/hr 1X ONCE IV Last administered on 08/29/19at 08:00; Start 08/29/19 at 08:00; Stop 08/29/19 at 08:59; Status DC Lactobacillus Rhamnosus (Culturelle) 1 cap BID PO Last administered on 08/30/19at 22:14; Start 08/29/19 at 21:00 Insulin Human Lispro (HumaLOG) 0-5 UNITS TIDWMEALS SQ Last administered on 08/30/19at 08:00; Start 08/29/19 at 17:00; Stop 08/30/19 at 10:46; Status DC Dextrose (Dextrose 50%-Water Syringe) 12.5 gm PRN Q15MIN PRN IV SEE COMMENTS; Start 08/29/19 at 16:30; Stop 08/30/19 at 10:55; Status DC Dextrose (Iv Dextrose 5%) 250 ml PRN Q15MIN PRN IV SEE COMMENTS; Start 08/29/19 at 16:30; Stop 08/30/19 at 10:55; Status DC Insulin Glargine (Lantus Syringe) 10 unit QHS SQ Last administered on 08/29/19at 22:28; Start 08/29/19 at 21:00; Stop 08/30/19 at 10:46; Status DC Insulin Glargine (Lantus Syringe) 20 unit QHS SQ Last administered on 08/30/19at 22:19; Start 08/30/19 at 21:00; Stop 08/31/19 at 09:03; Status DC Insulin Human Lispro (HumaLOG) 0-7 UNITS TIDWMEALS SQ Last administered on 08/30/19at 12:10; Start 08/30/19 at 12:00; Stop 08/30/19 at 17:44; Status DC Dextrose (Dextrose 50%-Water Syringe) 12.5 gm PRN Q15MIN PRN IV SEE COMMENTS; Start 08/30/19 at 11:00 Dextrose (Iv Dextrose 5%) 250 ml PRN Q15MIN PRN IV SEE COMMENTS; Start 08/30/19 at 11:00 Insulin Human Lispro (HumaLOG) 10 units TIDAC SQ Last administered on 08/31/19at 07:58; Start 08/30/19 at 18:15; Stop 08/31/19 at 09:19; Status DC Insulin Glargine (Lantus Syringe) 30 unit QHS SQ ; Start 08/31/19 at 21:00 Metformin HCl (Glucophage Xr) 500 mg DAILYWBKFT PO ; Start 08/31/19 at 10:00 Glimepiride (Amaryl) 2 mg DAILY PO ; Start 08/31/19 at 10:00 Potassium Chloride (Klor-Con) 40 meq 1X ONCE PO ; Start 08/31/19 at 09:15; Stop 08/31/19 at 09:16; Status DC Potassium Chloride (Klor-Con) 20 meq TID PO ; Start 08/31/19 at 14:00 Insulin Human Lispro (HumaLOG) 12 units TIDAC SQ ; Start 08/31/19 at 09:30 Active Scripts Active Reported Ibuprofen 400 Mg Tablet 400 Mg PO PRN Q6HRS PRN Vitals/I & O Vital Sign - Last 24 Hours 08/30/19 08/30/19 08/30/19 08/30/19 11:00 15:00 19:00 20:00 Temp 98.2 98.4 98.6 98.2 98.4 98.6 Pulse 90 101 101 Resp 16 16 18 B/P (MAP) 132/78 (96) 136/75 (95) 128/73 (91) Pulse Ox 98 94 94 O2 Delivery Room Air Room Air Room Air Room Air 08/30/19 08/31/19 08/31/19 23:00 03:00 07:00 Temp 97.9 98.5 98.0 97.9 98.5 98.0 Pulse 87 119 86 Resp 18 18 16 B/P (MAP) 136/87 (103) 159/85 (109) 117/71 (86) Pulse Ox 97 92 96 O2 Delivery Room Air Room Air Room Air Intake and Output 08/30/19 08/30/19 08/31/19 15:00 23:00 07:00 Intake Total 0 ml Balance 0 ml RAYMOND PEARSON MD Aug 31, 2019 10:01
[2019-08-31 11:00] VITALS: BP 135/69
[2019-08-31] MEDS: LACTOBACILLUS RHAMNOSUS GG 1 CAPSULE. PO SCH ×2 (12:58→22:02)
[2019-08-31] MEDS: metFORMIN XR 500 MG TAB.ER.24H PO SCH (12:59)
[2019-08-31] MEDS: GLIMEPIRIDE 2 MG TABLET. PO SCH (12:59)
[2019-08-31] MEDS: POTASSIUM CHLORIDE 20 MEQ TABLET.ER. PO SCH ×2 (13:04→22:02)
--- NOTE | 2019-08-31 13:24 | PN ---
DATE: 08/31/2019 SUBJECTIVE: The patient is resting, slightly propped up, sleeping comfortably, in no apparent distress. On questioning her, denied any complaint. Nursing staff did not voice any concern. However, her blood sugar continued to be suboptimally controlled. She has also hypokalemia. Her urine culture has grown more than 100,000 colony forming units per mL of Escherichia coli. Sensitivity is still pending at the time of this dictation. PHYSICAL EXAMINATION: GENERAL: When I examined her, she looked well and was clearly in no apparent respiratory distress, slightly pale, but no jaundice, cyanosis or thyromegaly. No jugular venous distention. No limb edema. VITAL SIGNS: Her heart rate was 86, blood pressure was 117/71, temperature was 98, respiratory rate was 16, and oxygen saturation was 96%. HEAD, EYES, EARS, NOSE AND THROAT: Normocephalic, atraumatic. NECK: Supple. CARDIAC: Normal first and second heart sounds. No gallop or murmur. CHEST: Clear to auscultation. No crepitation or rhonchi. ABDOMEN: Distended, soft, nontender. NEUROLOGIC: She is sleepy, but arousable. All cranial nerves intact. She moves all extremities without difficulty. She apparently has been out of the bed to the bedside commode. Her intake over the last 24 hours and output were incompletely recorded. LABORATORY DATA: White cell count this morning was down to 9400, hemoglobin 9.4, hematocrit 27.6, MCV 83 and platelet count 246,000. Her chemistry showed serum sodium 136, potassium 3, chloride 105, bicarbonate 19, anion gap of 12, BUN 15, creatinine 0.9, estimated GFR was 63 mL per minute. Her glucose was 315, calcium was 8.5. ASSESSMENT: Newly diagnosed diabetes mellitus with mild diabetic ketoacidosis, improving. Her anion gap is closed. Blood sugar, however, continued to be suboptimally controlled. Urinary tract infection with growth of more than 100,000 colony forming units per mL of Escherichia coli. The sensitivity is still pending. PLAN: To continue with IV fluid, continue with insulin. I did start her on oral metformin and Amaryl. I increased her Lantus also to 30 units. I also replenished her potassium. I will repeat all her lab works tomorrow. JOSHUA BRINK MD DR: Marito JOB#: [id number] / [id number]
[2019-08-31 15:00] VITALS: BP 136/77
--- NOTE | 2019-08-31 16:06 | NUR ---
SW following. Discussed with RN. Labs tomorrow (09/01/2019). IV abx, pt not ready today. Pt is self pay, plan will be home with and self care. SW will continue to follow.
[2019-08-31] MEDS: ASPIRIN ENTERIC COATED 81 MG TABLET.DR. PO SCH (17:09)
[2019-08-31 19:00] VITALS: BP 131/73
[2019-08-31] MEDS: cefTRIAXone IV Push 1 GM VIAL. IVP SCH (22:02)
[2019-08-31] MEDS: INSULIN GLARGINE SYRINGE. SQ SCH (22:10)
[2019-08-31 23:00] VITALS: BP 117/75
[2019-09-01 03:00] VITALS: BP 123/75
[2019-09-01] MEDS: IV NORMAL SALINE 1000ML BAG 1,000 ML IV SCH (03:19)
[2019-09-01 05:57] LABS: HEMATOCRIT 27.9 % (36.0-47.0); HEMOGLOBIN 9.3 g/dL (12.0-15.5); RED BLOOD COUNT 3.36 x10^6/uL (3.50-5.40); RED CELL DISTRIBUTION WIDTH 16.2 % (11.5-14.5); WHITE BLOOD COUNT 9.7 x10^3/uL (4.0-11.0)
[2019-09-01 06:01] LABS: ALBUMIN 1.3 g/dL (3.4-5.0); ALBUMIN/GLOBULIN RATIO 0.3 (1.0-1.7); CALCIUM 7.7 mg/dL (8.5-10.1); CREATININE 0.8 mg/dL (0.6-1.0); GFR 72.2; POTASSIUM 3.7 mmol/L (3.5-5.1); TOTAL BILIRUBIN 0.2 mg/dL (0.2-1.0); TOTAL PROTEIN 5.8 g/dL (6.4-8.2)
[2019-09-01 07:59] VITALS: BP 126/69
[2019-09-01] MEDS: LACTOBACILLUS RHAMNOSUS GG 1 CAPSULE. PO SCH ×2 (09:01→20:26)
[2019-09-01] MEDS: POTASSIUM CHLORIDE 20 MEQ TABLET.ER. PO SCH ×3 (09:01→20:26)
[2019-09-01] MEDS: ASPIRIN ENTERIC COATED 81 MG TABLET.DR. PO SCH (09:02)
[2019-09-01] MEDS: GLIMEPIRIDE 2 MG TABLET. PO SCH ×2 (09:02→12:29)
[2019-09-01] MEDS: metFORMIN XR 500 MG TAB.ER.24H PO SCH ×3 (09:02→20:25)
[2019-09-01] MEDS: INSULIN LISPRO 300 UNITS/3 ML VIAL. SQ SCH ×3 (09:11→17:42)
--- NOTE | 2019-09-01 11:36 | PN ---
DATE: 09/01/2019 SUBJECTIVE: The patient is resting, slightly propped up in bed, sleeping comfortably. On questioning her, denied any complaint. The nursing staff did not voice any concern, stated she has an uneventful night. PHYSICAL EXAMINATION: GENERAL: When I examined her, she looked pale, but no jaundice, cyanosis or thyromegaly. No jugular venous distention. No lower limb edema. VITAL SIGNS: Her heart rate was 89, blood pressure was 126/69, temperature was 99.1, respiratory rate was 20, and oxygen saturation was 96%. HEAD, EYES, EARS, NOSE AND THROAT: Showed normocephalic, atraumatic. NECK: Supple. HEART: Showed normal first and second heart sounds. No gallop or murmur. CHEST: Clear to auscultation. No crepitation or rhonchi. ABDOMEN: Distended, soft, nontender. NEUROLOGIC: She was awake, alert, responding appropriately. All cranial nerves are intact. She moves extremities without difficulty. She ambulates without assistance or assistive devices. Her intake over the last 24 hours was incompletely recorded. LABORATORY DATA: Her lab work this morning showed a white cell count 9700, hemoglobin was 9, hematocrit 27, MCV 83 and platelet count 245,000. Her chemistry showed a serum sodium 138, potassium 3.7, chloride 106, bicarbonate 20, anion gap of 12, BUN 13, creatinine 0.8, estimated GFR was 72 mL per minute. ASSESSMENT: 1. Nearly new onset type 2 diabetes mellitus with mild diabetic ketoacidosis, improving. The anion gap is closing. 2. Blood sugars continue to be suboptimally controlled. 3. Urinary tract infection with growth of more than 100,000 colony forming units per mL of Escherichia coli. PLAN: To discontinue IV fluid and increase her Amaryl to 4 mg once a day and metformin to 500 mg twice a day and hopefully have a better blood sugar controlled by Tuesday morning, so she can be discharged home on oral hypoglycemic agent and oral antibiotic. Her CT scan and MRI showed no evidence of new infarct. JOSHUA BRINK MD DR: ZENON/jayme JOB#: [id number] / [id number]
[2019-09-01 11:59] VITALS: BP 119/67
--- NOTE | 2019-09-01 12:34 | NUR ---
Metformin and Glimepiride: Dr Womack changed orders after am does given. Non-admin new metformin order as pt was given med on prev order. Glimepiride 2 mg was given as the other 2 mg was given with am med pass.
[2019-09-01] MEDS: ACETAMINOPHEN 325 MG TABLET. PO PRN (15:05)
[2019-09-01 15:59] VITALS: BP 138/68
[2019-09-01 19:00] VITALS: BP 131/66
[2019-09-01] MEDS: CEFDINIR 300 MG CAPSULE PO SCH (20:26)
[2019-09-01] MEDS: INSULIN GLARGINE SYRINGE. SQ SCH (20:32)
[2019-09-01 23:00] VITALS: BP 137/83
[2019-09-02 03:00] VITALS: BP 122/76
[2019-09-02 07:09] LABS: HEMOGLOBIN A1C 16.5 % (4.8-5.6)
[2019-09-02 07:59] VITALS: BP 142/70
[2019-09-02] MEDS: CEFDINIR 300 MG CAPSULE PO SCH ×2 (08:29→21:09)
[2019-09-02] MEDS: ASPIRIN ENTERIC COATED 81 MG TABLET.DR. PO SCH (08:30)
[2019-09-02] MEDS: POTASSIUM CHLORIDE 20 MEQ TABLET.ER. PO SCH ×3 (08:30→21:09)
[2019-09-02] MEDS: metFORMIN XR 500 MG TAB.ER.24H PO SCH ×2 (08:30→17:58)
[2019-09-02] MEDS: LACTOBACILLUS RHAMNOSUS GG 1 CAPSULE. PO SCH ×2 (08:30→21:09)
[2019-09-02] MEDS: GLIMEPIRIDE 2 MG TABLET. PO SCH ×2 (08:30→17:58)
[2019-09-02] MEDS: INSULIN LISPRO 300 UNITS/3 ML VIAL. SQ SCH (08:40)
[2019-09-02] MEDS ORDERED: metFORMIN XR 500 MG TAB.ER.24H PO ONE (10:15)
--- NOTE | 2019-09-02 11:20 | PN ---
DATE: 09/02/2019 SUBJECTIVE: The patient is resting, slightly propped up, sleeping comfortably, in no apparent distress. On questioning her, she denied any complaint. The nursing staff did not voice any concern and stated that she had an uneventful night. She is able to ambulate with a walker. Her blood sugar is trending down and generally much better controlled. As of yesterday, her anion gap has completely closed. OBJECTIVE: GENERAL: When I saw her this morning, she looked pale, but no jaundice, cyanosis, or thyromegaly. No jugular venous distention. No limb edema. VITAL SIGNS: Her heart rate was 92, blood pressure 142/70, temperature 98.2, respiratory rate was 16, and oxygen saturation was 95% on room air. The rest of clinical exam is stable. Her intake and output are incompletely recorded. LABORATORY DATA: As of yesterday, her serum sodium 138, potassium 3.7, chloride 106, bicarbonate 20, anion gap of 12, BUN 13, and creatinine 0.8. Her white cell count 9700, hemoglobin 9.3, hematocrit 27, MCV 83, and platelet count 245,000. ASSESSMENT: 1. New onset diabetes mellitus with mild diabetic ketoacidosis, resolving. Her blood pressure is much better controlled. 2. Urinary tract infection with growth of more than 100,000 colony forming units per mL of Escherichia coli sensitive to cephalosporins. She is now on cefdinir 300 mg twice a day. PLAN: My plan is to increase her Amaryl to 4 mg twice a day and metformin 1000 mg twice a day. We will discontinue Lantus and NovoLog insulin and hopefully discharge her home tomorrow. JOSHUA BRINK MD DR: ZENON/jayme JOB#: [id number] / [id number]
[2019-09-02 11:59] VITALS: BP 102/78
[2019-09-02 14:57] VITALS: BP 121/73
[2019-09-02] MEDS ORDERED: CALCIUM CARBONATE 500 MG TAB.CHEW PO PRN (18:30)
[2019-09-02 19:00] VITALS: BP 131/73
[2019-09-02 23:08] VITALS: BP 114/65
[2019-09-03] MEDS: ACETAMINOPHEN 325 MG TABLET. PO PRN (02:26)
[2019-09-03 03:28] VITALS: BP 127/72
[2019-09-03 07:00] VITALS: BP 115/72
[2019-09-03 07:25] LABS: CALCIUM 7.8 mg/dL (8.5-10.1); CREATININE 0.8 mg/dL (0.6-1.0); GFR 72.2; POTASSIUM 3.7 mmol/L (3.5-5.1)
[2019-09-03] MEDS ORDERED: GLIM4TAB PO (09:32)
[2019-09-03] MEDS ORDERED: METF100010 PO (09:32)
[2019-09-03] MEDS ORDERED: CEFD300C PO (09:32)
[2019-09-03] MEDS ORDERED: ASPI-630 PO (09:33)
[2019-09-03] MEDS: LACTOBACILLUS RHAMNOSUS GG 1 CAPSULE. PO SCH (09:40)
[2019-09-03] MEDS: metFORMIN XR 500 MG TAB.ER.24H PO SCH (09:40)
[2019-09-03] MEDS: POTASSIUM CHLORIDE 20 MEQ TABLET.ER. PO SCH ×2 (09:40→14:20)
[2019-09-03] MEDS: GLIMEPIRIDE 2 MG TABLET. PO SCH (09:41)
[2019-09-03] MEDS: CEFDINIR 300 MG CAPSULE PO SCH (09:41)
[2019-09-03] MEDS: ASPIRIN ENTERIC COATED 81 MG TABLET.DR. PO SCH (09:41)
--- NOTE | 2019-09-03 10:24 | DS ---
DATE OF DISCHARGE: HOSPITAL COURSE: The patient is a 64-year-old female patient who was originally seen at [facility] with possible right-sided weakness as well as dizziness and possible confusion. She has had difficulty gripping with her right hand and difficulty walking. She had a CT scan of the head, which showed that she has local white matter change in the anterior limb of the internal capsule on the left side and therefore, she was also found to have leukocytosis and mild high anion gap metabolic acidosis and marked hyperglycemia as well as urinary tract infection. She was transferred to [facility]. She had an MRI. We did continue her on insulin drip as well as IV fluid. Her MRI showed that there is no evidence of recent infarct. She has left basal ganglia old infarct. Bilateral carotid Doppler ultrasound showed no evidence of hemodynamically significant stenosis, although there is scattered diffuse plaque bilaterally. Her blood sugar came down steadily. I did switch her to oral hypoglycemic agent in the form of Amaryl as well as metformin and she was continued on IV Rocephin and switched to cefdinir. PHYSICAL EXAMINATION: GENERAL: When I saw her today, she looked well and was clearly in no apparent respiratory distress, slightly pale, but no jaundice, cyanosis or thyromegaly. No jugular venous distention. No lower limb edema. VITAL SIGNS: Her heart rate was 86, blood pressure 115/72, temperature was 97.9, respiratory rate was 17 and oxygen saturation was 97%. The rest of clinical exam is stable. LABORATORY DATA: Showed a white cell count 9700, hemoglobin 9.3, hematocrit 28, MCV 83 and platelet count 245,000. Her chemistry showed a serum sodium 135, potassium 3.7, chloride 103, bicarbonate 25, anion gap of 7, BUN 6, creatinine 0.8, estimated GFR was 72 mL per minute. Her glucose was 208 and calcium was 7.8. DISCHARGE MEDICATIONS: She was discharged home to continue on aspirin 81 mg once a day, cefdinir 300 mg twice a day for 3 days, glimepiride for Amaryl 4 mg twice a day and metformin extended release 500 mg, she takes 2 tablets twice a day. FINAL DISCHARGE DIAGNOSES: 1. Old silent left basal ganglia infarct. 2. Metabolic encephalopathy due to: A. Urinary tract infection. B. New onset type 2 diabetes with mild diabetic ketoacidosis. The patient was advised to arrange for a primary care physician to follow her lab work and she might require adjustment of her oral hypoglycemic agent and/or insulin therapy. JOSHUA BRINK MD DR: ZENON/jayme JOB#: [id number] / [id number]
[2019-09-03 11:00] VITALS: BP 114/66
--- NOTE | 2019-09-03 13:18 | NUR ---
SW following. Discussed with RN. Pt from home with . RN anticipates discharge home with self care today. SW will continue to follow.
[2019-09-03 15:00] VITALS: BP 131/74
--- NOTE | 2019-09-03 15:26 | PDOC ---
PROGRESS NOTES Assessment Assessment IMPRESSION: Metabolic encephalopathy. Chronic left BG infarct. Hyperglycemia. DM. HTN. Obesity. RECOMMENDATIONS/PLAN: Continue ASA daily. Control hyperglycemia. Treat medical diseases. FU with PCP. Past Medical History Cardiovascular: No pertinent hx Musculoskeletal: Other (Left knee injury) Past Surgical History , appendectomy and total abdominal hysterectomy. Family History CAD Social History , retired, ex smoker, rare alcohol Allergies No Known Drug Allergies (Unverified , 08/29/19), verified with pt, NKDA ROS Negative for fever, chills, weight loss, shortness of breath, chest pain, indige stion, hematochezia, melena, and dysuria. Full 14-point review of systems is negative. MEDICATIONS: Refer to MAR PHYSICAL EXAMINATION: General appearance in no acute distress. HEENT: Normocephalic and nontraumatic. Eyes, nose, ears, and throat are unremarkable. Hearing decrease. Neck is supple. No lymphadenopathy. No Crepitus. Cardiovascular: S1, S2, regular rate and rhythm. Pulmonary: Clear to auscultation bilaterally. Abdomen: Bowel sounds are positive. Abdomen is soft, nontender, and nondistended. Extremities: No rash, lesions, or edema. No restriction of range of motion NEUROLOGICAL EXAMINATION: Awake. Oriented partially to time, but knew place and person. PERRL. EOMI. CN: no focal findings. Muscle tone: within normal. Muscle strength: 5- DTR: 1-2 Plantar reflex: Neutral response bilaterally Gait: not examined in bed. Sensory exam: no abnormal findings. No cerebellar signs elicited. F-T-N test fine. Objective Objective Vital Signs Date Time Temp Pulse Resp B/P (MAP) Pulse Ox O2 Delivery O2 Flow Rate FiO2 09/03/19 15:00 97.6 88 17 131/74 (93) 94 Room Air 97.6 Vitals Signs Vitals VS - Last 72 Hours, by Label Date Time Temp Pulse Resp B/P (MAP) Pulse Ox O2 Delivery O2 Flow Rate FiO2 09/03/19 15:00 97.6 88 17 131/74 (93) 94 Room Air 97.6 09/03/19 11:00 97.9 89 17 114/66 (82) 97 Room Air 97.9 09/03/19 08:00 Room Air 09/03/19 07:00 97.9 86 17 115/72 (86) 97 Room Air 97.9 09/03/19 03:28 98.1 100 20 127/72 (90) 96 Room Air 98.1 09/02/19 23:08 98.4 90 18 114/65 (81) 96 Room Air 98.4 09/02/19 20:00 Room Air 09/02/19 19:00 98.6 94 18 131/73 (92) 96 Room Air 98.6 09/02/19 14:57 98.1 89 16 121/73 (89) 96 Room Air 98.1 09/02/19 11:59 98.1 87 16 102/78 (86) 98 Room Air 98.1 09/02/19 08:00 Room Air 09/02/19 07:59 98.2 92 16 142/70 (94) 95 Room Air 98.2 Laboratory Laboratory Laboratory Tests Test 09/02/19 20:48 09/03/19 06:30 09/03/19 07:57 09/03/19 11:49 Glucose (Fingerstick) 141 mg/dL (70-99) 212 mg/dL (70-99) 211 mg/dL (70-99) Sodium Level 135 mmol/L (136-145) Potassium Level 3.7 mmol/L (3.5-5.1) Chloride Level 103 mmol/L (98-107) Carbon Dioxide Level 25 mmol/L (21-32) Anion Gap 7 (6-14) Blood Urea Nitrogen 6 mg/dL (7-20) Creatinine 0.8 mg/dL (0.6-1.0) Estimated GFR (Cockcroft-Gault) 72.2 Glucose Level 208 mg/dL (70-99) Calcium Level 7.8 mg/dL (8.5-10.1) Medication Medications Current Medications Calcium Carbonate/ Glycine (Tums) 500 mg PRN AFTMEALHC PRN PO INDIGESTION; Start 09/02/19 at 18:30 Glimepiride (Amaryl) 4 mg BIDWMEALS PO Last administered on 09/03/19at 09:41; Start 09/02/19 at 17:00 Metformin HCl (Glucophage Xr) 1,000 mg BIDWMEALS PO Last administered on 09/03/19at 09:40; Start 09/02/19 at 17:00 Comment Review of Relevant I have reviewed the following items damaso (where applicable) has been applied. TOM WHEATLEY MD Sep 03, 2019 15:26
--- NOTE | 2019-09-03 16:00 | NUR ---
DISCHARGE [id number] GIVEN TO PATIENT AND SPOUSE WHO IS AT THE BEDSIDE AT THIS TIME, QUESTIONS AND CONCERNS ANSWERED, PATIENT AND SPOUSE VERBALIZED UNDERSTANDING OF DISCHARGE INFORMATION INCLUDING TAKING ALL MEDICATIONS INSTRUCTED AND FOLLOWING UP WITH HER PRIMARY PROVIDER IN 1-2 WEEKS. SALINE LOCK REMOVED FROM PATIENTS RIGHT UPPER ARM PER STRUCTURAL ANALYSIS ENGINEER AND BANDAGE APPLIED. PATIENT INFORMED BY THIS MANAGED CARE PROVIDER THAT HER PRESCRIPTIONS WERE CALLED TO HER PHARMACY SHE REQUESTED.
--- NOTE | 2019-09-03 16:04 | NUR ---
PATIENT LEAVES THE UNIT PER W/C ALONGSIDE HER SPOUSE AND TARE WORKER, EMOTIONAL SUPPORT GIVEN, FOLLOW UP APPOINTMENTS ENCOURAGED.
[2019-09-04] MEDS ORDERED: ASPIRIN ENTERIC COATED 81 MG TABLET.DR. PO SCH (08:00)
== END 2019-09-03 16:06 | disposition home or self-care (01) | DRG 637 ==
LOC: 5 SOUTH 23:55
PROVIDERS: ADMIT Internal Medicine; ATTEND Internal Medicine
DX: E11.10 Type 2 diabetes mellitus with ketoacidosis without coma (principal); G93.41 Metabolic encephalopathy; N17.9 Acute kidney failure, unspecified; N39.0 Urinary tract infection, site not specified; B96.20 Unspecified Escherichia coli [E. coli] as the cause of diseases classified elsewhere; E66.9 Obesity, unspecified; E78.5 Hyperlipidemia, unspecified; E78.1 Pure hyperglyceridemia; E87.6 Hypokalemia; I10 Essential (primary) hypertension; Z79.82 Long term (current) use of aspirin; Z82.49 Family history of ischemic heart disease and other diseases of the circulatory system; Z68.36 Body mass index [BMI] 36.0-36.9, adult; Z86.73 Personal history of transient ischemic attack (TIA), and cerebral infarction without residual deficits; Z87.891 Personal history of nicotine dependence; Z90.710 Acquired absence of both cervix and uterus
CPT/HCPCS: 36415; 70551; 80048; 80053; 80061; 82962; 83036; 85007; 85025; 85027; 93880; J0696; J1815; J7030; 97116; 97535; G0378